=== PATIENT | male | born 1950 | race Hispanic/Latino ===

== ENCOUNTER 2016-10-21 12:20 | Outpatient (CLI) | payer MEDICARE, OTHER ==
--- NOTE | 2016-10-22 09:46 | XRay Report ---
METASTATIC BONE SURVEY HISTORY: Acquired deformity of chest and ribs. FINDINGS: No comparison. Bone mineralization appears normal. No abnormal blastic or lytic bone lesions are appreciated on x-ray. No fracture or periostitis. There is mild multilevel spondylosis throughout the spine. No calvarial lesions. IMPRESSION: Unremarkable metastatic bone survey. No abnormal bony production or destruction is identified.
== END 2016-10-21 12:21 | disposition home or self-care (01) ==
LOC: SPVIMAG 12:20
PROVIDERS: ATTEND Internal Medicine Hematology & Oncology
DX: M95.4 Acquired deformity of chest and rib (principal); D72.822 Plasmacytosis
CPT/HCPCS: 77074

== ENCOUNTER 2017-08-13 12:24 | Outpatient (CLI) | payer MEDICARE, OTHER ==
--- NOTE | 2017-08-13 13:47 | XRay Report ---
X-RAY RIGHT CLAVICLE TWO VIEWS: 08/13/17 12:24:00 CLINICAL: Acquired deformity of chest and rib. A metastatic survey on 06/25/17 demonstrated an expansile lesion of the left ninth rib. FINDINGS: The clavicle is intact with no lesion or fracture. The acromioclavicular joint is relatively wide with mild arthritic change. The clavicle itself is normal. Mild glenohumeral joint arthritis. No rib lesion identified. 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 The clavicle is otherwise normal. Mild glenohumeral joint arthritis.
== END 2017-08-13 12:25 | disposition home or self-care (01) ==
LOC: SPVIMAG 12:24
PROVIDERS: ATTEND Internal Medicine Hematology & Oncology
DX: M19.011 Primary osteoarthritis, right shoulder (principal); C90.30 Solitary plasmacytoma not having achieved remission; D72.822 Plasmacytosis; M95.4 Acquired deformity of chest and rib